=== PATIENT | male | born 1980 | race Caucasian/White ===

== ENCOUNTER 2016-10-28 04:35 | Emergency (ER) | payer MEDICAID ==
[~2016-10-28] VITALS: Ht 177.8 cm; Wt 63.5 kg
--- NOTE | 2016-10-28 04:37 | NUR ---
PT BIB [facility]. TAKEN TO BED 3
--- NOTE | 2016-10-28 04:41 | NUR ---
36 Y/O M BIBA W/C/O R LOWER BACK PAIN, NAUSEA AND VOMITING X TODAY AT 0400 AM. PT STATES PT HAS HX OF KIDNEY STONE AND WAS RECENTLY DIAGNOSED WITH KIDNEY STONE ON R KIDNEY. PT DENIES ANY FEVER BUT STATES HAS EXPERINECED CHILLS. NO S/S OF DISTRESS NOTED AT THE MOMENT, ER MD WILL BE NOTIFY.
[2016-10-28 04:45] VITALS: BP 138/56
[2016-10-28] MEDS ORDERED: METOCLOPRAMIDE 10 MG/2 ML INJ VIAL IVP ONE (05:30)
[2016-10-28] MEDS ORDERED: NACL 0.9% 1,000 ML IV ONE ×2 (05:30)
[2016-10-28] MEDS ORDERED: fentaNYL 0.05 MG/ML VIAL IVP ONE ×2 (05:30→06:55)
--- NOTE | 2016-10-28 05:39 | NUR ---
Dr. Winters evaluating patient at bedside.
[2016-10-28] MEDS ORDERED: FAMOTIDINE 20 MG/2 ML VIAL IVP ONE (05:45)
[2016-10-28 05:55] LABS: ANION GAP 9.1 (8-16); CALCIUM 8.9 mg/dL (8.5-10.1); CARBON DIOXIDE 31.5 mmol/L (21-32); CREATININE 0.9 mg/dL (0.6-1.3); POTASSIUM 3.6 mmol/L (3.5-5.1)
[2016-10-28 05:57] LABS: BASOPHILS # (AUTO) 0.1 K/uL (0.00-0.22); BASOPHILS % (AUTO) 2.1 % (0.0-2.0); EOSINOPHILS # (AUTO) 0.1 K/uL (0-0.4); EOSINOPHILS % (AUTO) 1.2 % (0.0-4.0); HEMATOCRIT 39.7 % (36-52); HEMOGLOBIN 13.1 g/dL (12.0-18.0); LYMPHOCYTES # (AUTO) 1.5 K/uL (2.0-11.5); LYMPHOCYTES % (AUTO) 26.3 % (20.5-51.1); MEAN CORPUSCULAR HEMOGLOBIN 29 pg (27-31); MEAN CORPUSCULAR HGB CONC 33 g/dL (33-37); MEAN CORPUSCULAR VOLUME 88 fL (80-94); MONOCYTES # (AUTO) 0.3 K/uL (0.8-1.0); MONOCYTES % (AUTO) 5.6 % (1.7-9.3); NEUTROPHILS # (AUTO) 3.9 K/uL (1.8-7.7); NEUTROPHILS % (AUTO) 64.8 % (42.2-75.2); PLATELET COUNT (AUTO) 159 K/uL (140-450); RED CELL DISTRIBUTION WIDTH 12.9 % (11.6-13.7); WHITE BLOOD COUNT (AUTO) 5.9 K/uL (4.8-10.8)
--- NOTE | 2016-10-28 06:00 | NUR ---
PT TAKEN TO CT
[2016-10-28 06:01] LABS: ALBUMIN 3.9 g/dL (3.4-5.0); TOTAL BILIRUBIN 0.4 mg/dL (0.0-1.0); TOTAL PROTEIN, SERUM 6.9 g/dL (6.4-8.2)
[2016-10-28 06:07] LABS: INR 1.2 (0.8-1.2); PARTIAL THROMBOPLASTIN TIME 27.9 secs (22-35.6); PROTHROMBIN TIME 11.2 secs (10.8-13.4)
--- NOTE | 2016-10-28 06:14 | NUR ---
PT RETURN FROM CT
--- NOTE | 2016-10-28 06:29 | NUR ---
PT RESTING IN BED, DENIES ANY PAIN AT THE MOMENT. ON MONITOR, NO S/S OF DISTRESS NOTED AT THE MOMENT.
[2016-10-28] MEDS ORDERED: DIAZEPAM PFS 10 MG/2 ML SYR IVP ONE (06:55)
--- NOTE | 2016-10-28 07:18 | NUR ---
REPORT GIVEN TO MAGGY ENCARNACION. PT CHARISSE, VSS. WILKERSON OF CARE AT THIS TIME.
--- NOTE | 2016-10-28 07:20 | NUR ---
CALLED PHARMACY;ANI MORALES IS NOT SHOWING INTHE PHYXIS;PHARMACIST TOLD ME TO OVERRIDE MEDS.
[2016-10-28] MEDS ORDERED: DIAZEPAM PFS 10 MG/2 ML SYR ONE (07:32)
--- NOTE | 2016-10-28 07:36 | NUR ---
PT AMBULATED TO THE RESTROOM.
--- NOTE | 2016-10-28 07:36 | NUR ---
Mick pacheco in [facility] - 10/28/16 at 0743 by VALENTINO PT AMBULAYED TO THE RESTROOM.
--- NOTE | 2016-10-28 08:00 | NUR ---
Patient discharged with v/s stable. Written and verbal after care instructions given and explained.Patient alert, oriented and verbalized understanding of instructions. Carried with steady gait. All questions addressed prior to discharge. ID band removed. Patient advised to follow up with PMD. Rx of BENTYL given. Patient educated on indication of medication including possible reaction and side effects. Opportunity to ask questions provided and answered.
[2016-10-28 08:02] VITALS: BP 131/88
== END 2016-10-28 08:00 | disposition home or self-care (01) ==
LOC: MED 04:35
DX: K56.7 Ileus, unspecified (principal); R03.0 Elevated blood-pressure reading, without diagnosis of hypertension; K21.9 Gastro-esophageal reflux disease without esophagitis; Z88.1 Allergy status to other antibiotic agents; Z88.6 Allergy status to analgesic agent; Z88.8 Allergy status to other drugs, medicaments and biological substances; Z87.442 Personal history of urinary calculi
CPT/HCPCS: 36415; 72125; 74176; 80053; 83690; 85025; 85610; 85730; 96361; 96374; 96375; 96376; 99285; J2765; J3010; J3360; J3490; J7030

== ENCOUNTER 2017-04-03 08:19 | Emergency (ER) | payer MEDICAID ==
[~2017-04-03] VITALS: Ht 177.8 cm; Wt 61.2 kg
[2017-04-03 08:27] VITALS: BP 118/74
--- NOTE | 2017-04-03 08:58 | NUR ---
Patient to bed 11 by EMS at this time.
--- NOTE | 2017-04-03 09:00 | NUR ---
36/M BIBA C/O ABD PAIN & N/V X TODAY. PER PATIENT,S/P COLONOSCOPY, BLOODY STOOL,BODY ACHE.HX: KIDNEY STONE, PELVIC & NECK SUG. SKIN IS PINK/WARM/DRY; AAOX4; LUNGS CLEAR BL; PT DENIES ANY FEVER, CP, SOB, OR COUGH AT THIS TIME; PATIENT STATES PAIN OF 10/10 AT THIS TIME; PATIENT POSITIONED FOR COMFORT; HOB ELEVATED; BEDRAILS UP X2; BED DOWN. ER MD MADE AWARE OF PT STATUS.
[2017-04-03] MEDS ORDERED: NACL 0.9% 1,000 ML IV ONE (09:15)
[2017-04-03] MEDS ORDERED: FAMOTIDINE 20 MG/2 ML VIAL IVP ONE (09:15)
[2017-04-03] MEDS ORDERED: LORazepam 2 MG/ML VIAL IVP ONE (09:15)
[2017-04-03] MEDS ORDERED: MORPHINE SULFATE 4 MG/ML SYR IVP ONE (09:15)
[2017-04-03] MEDS ORDERED: METOCLOPRAMIDE 10 MG/2 ML INJ VIAL IVP ONE ×2 (09:15→12:30)
--- NOTE | 2017-04-03 09:40 | NUR ---
0940; 1MG ATIVAN WASTED
[2017-04-03 09:56] LABS: BASOPHILS # (AUTO) 0.1 K/uL (0.00-0.22); BASOPHILS % (AUTO) 1.8 % (0.0-2.0); EOSINOPHILS % (AUTO) 0.2 % (0.0-4.0); HEMATOCRIT 40.3 % (36-52); LYMPHOCYTES # (AUTO) 0.5 K/uL (2.0-11.5); MEAN CORPUSCULAR HEMOGLOBIN 29 pg (27-31); MEAN CORPUSCULAR HGB CONC 32 g/dL (33-37); MEAN CORPUSCULAR VOLUME 89 fL (80-94); MONOCYTES # (AUTO) 0.3 K/uL (0.8-1.0); MONOCYTES % (AUTO) 3.6 % (1.7-9.3); NEUTROPHILS # (AUTO) 7.3 K/uL (1.8-7.7); NEUTROPHILS % (AUTO) 88.4 % (42.2-75.2); PLATELET COUNT (AUTO) 178 K/uL (140-450); RED BLOOD CELL COUNT(AUTO) 4.56 MIL/uL (4.20-6.10); WHITE BLOOD COUNT (AUTO) 8.2 K/uL (4.8-10.8)
--- NOTE | 2017-04-03 10:00 | NUR ---
PT TAKEN TO CT VIA GUJENNIE, ACCOMPANIED BY TELEGRAPH SERVICE CLERK.
--- NOTE | 2017-04-03 10:10 | NUR ---
PT BACK FROM CT VIA NINFA, ACCOMPANIED BY COMMUTATOR ASSEMBLER.
[2017-04-03 11:22] LABS: ANION GAP 11.2 (8-16); POTASSIUM 3.2 mmol/L (3.5-5.1)
[2017-04-03 11:23] LABS: ALBUMIN 4.6 g/dL (3.4-5.0); TOTAL BILIRUBIN 0.4 mg/dL (0.0-1.0)
--- NOTE | 2017-04-03 12:07 | NUR ---
Patient appears to be resting comfortably in bed. BP 133/94,P 73, PULSE OX 100% Respirations even and unlabored.WILL CONTINUE TO MONITOR.
[2017-04-03] MEDS ORDERED: GLYCOPYRROLATE 0.2 MG/ML VIAL IV ONE (12:30)
[2017-04-03] MEDS ORDERED: POTASSIUM CHL 10 MEQ/D5-1/2NS 1,000 ML IV ONE (12:30)
[2017-04-03] MEDS ORDERED: MORPHINE SULFATE 2 MG/ML SYR IVP ONE (12:30)
[2017-04-03 13:05] LABS: APPEARANCE,URINE HAZY (CLEAR); BILIRUBIN,URINE NEGATIVE (NEGATIVE); BLOOD, URINE NEGATIVE (NEGATIVE); COLOR,URINE YELLOW (YELLOW); LEUKOCYTE ESTERASE ,URINE NEGATIVE (NEGATIVE); NITRITE, URINE NEGATIVE (NEGATIVE); PH,URINE 8.5 (5.0-9.0); UGLUCOSE NEGATIVE (NEGATIVE)
--- NOTE | 2017-04-03 13:15 | NUR ---
Patient appears to be resting comfortably in bed. Vital Signs within normal limits. Respirations even and unlabored.WILL CONTINUE TO MONITOR.
[2017-04-03 13:33] VITALS: BP 108/76
--- NOTE | 2017-04-03 13:33 | NUR ---
Patient discharged with v/s stable. Written and verbal after care instructions given and explained. Patient verbalized understanding. Ambulatory with steady gait. All questions addressed prior to discharge. Advised to follow up with PMD.
== END 2017-04-03 13:33 | disposition home or self-care (01) ==
LOC: MED 08:19
DX: G43.A0 Cyclical vomiting, in migraine, not intractable (principal); E86.0 Dehydration; F48.8 Other specified nonpsychotic mental disorders; K21.9 Gastro-esophageal reflux disease without esophagitis; Z88.8 Allergy status to other drugs, medicaments and biological substances; Z88.1 Allergy status to other antibiotic agents
CPT/HCPCS: 36415; 74176; 80053; 81003; 82150; 83690; 85025; 96361; 96365; 96375; 96376; 99285; J2060; J2270; J2765; J3490; J7030

== ENCOUNTER 2017-09-14 07:21 | Emergency (ER) | payer MEDICAID ==
[~2017-09-14] VITALS: Ht 177.8 cm; Wt 59.0 kg
[2017-09-14 07:25] VITALS: BP 135/93
[2017-09-14] MEDS ORDERED: GLYCOPYRROLATE 0.2 MG/ML VIAL IV ONE (07:45)
[2017-09-14] MEDS ORDERED: FAMOTIDINE 20 MG/2 ML VIAL IVP ONE (07:45)
[2017-09-14] MEDS ORDERED: LORazepam 2 MG/ML VIAL IVP ONE (07:45)
[2017-09-14] MEDS ORDERED: NACL 0.9% 1,000 ML IV SCH (07:45)
[2017-09-14] MEDS ORDERED: MORPHINE SULFATE 4 MG/ML SYR IVP ONE (07:45)
[2017-09-14] MEDS ORDERED: NACL 0.9% 1,000 ML IV ONE (07:45)
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
[2017-09-14] MEDS ORDERED: MORPHINE SULFATE 5 MG/ML VIAL ONE (08:02)
--- NOTE | 2017-09-14 08:13 | NUR ---
PT AWARE NEED URINE, PER PT WILL GIVE LATER
[2017-09-14 08:15] LABS: BASOPHILS % (AUTO) 0.3 % (0.0-2.0); EOSINOPHILS % (AUTO) 0.3 % (0.0-4.0); HEMOGLOBIN 12.6 g/dL (12.0-18.0); LYMPHOCYTES % (AUTO) 10.5 % (20.5-51.1); MEAN CORPUSCULAR HEMOGLOBIN 29 pg (27-31); MEAN CORPUSCULAR HGB CONC 33 g/dL (33-37); MEAN CORPUSCULAR VOLUME 88.1 fL (80-94); MONOCYTES # (AUTO) 0.4 K/uL (0.8-1.0); MONOCYTES % (AUTO) 4.2 % (1.7-9.3); NEUTROPHILS % (AUTO) 84.7 % (42.2-75.2); PLATELET COUNT (AUTO) 158 K/uL (140-450); RED BLOOD CELL COUNT(AUTO) 4.32 MIL/uL (4.20-6.10); RED CELL DISTRIBUTION WIDTH 13.7 % (11.6-13.7); WHITE BLOOD COUNT (AUTO) 9.5 K/uL (4.8-10.8)
--- NOTE | 2017-09-14 08:18 | NUR ---
TALKED TO MD PT ASKING FOR REGLAN PER MD I ALREADY ORDER HIS MEDICATION, EXPLAINED TO PT, PT EYES CLOSE AT THIS TIME, NO VOMITTING NOTED, IVF ONGOING WELL TOLERATED.
--- NOTE | 2017-09-14 08:27 | NUR ---
PT TO CT SCAN ACCOMPANIED BY 2 FORM PRESSER.
--- NOTE | 2017-09-14 08:35 | NUR ---
PT BACK FROM CT
--- NOTE | 2017-09-14 08:36 | NUR ---
PT RETURNED TO BED [address]
--- NOTE | 2017-09-14 08:39 | NUR ---
PER PT HE HAS REGLAN AND WANTS IF HE CAN TAKE IT, INFORM PT WILL TO THE MD.
[2017-09-14] MEDS ORDERED: HALOPERIDOL IM 5 MG/ML VIAL IM ONE (08:40)
[2017-09-14 08:41] LABS: ANION GAP 13.1 (8-16); CARBON DIOXIDE 26.2 mmol/L (21-32); CREATININE 0.9 mg/dL (0.7-1.3); POTASSIUM 3.3 mmol/L (3.5-5.1); TOTAL BILIRUBIN 0.3 mg/dL (0.0-1.0)
--- NOTE | 2017-09-14 08:43 | NUR ---
PER PT HE CANNT TAKE HALDOL AND DOESNT WANT KT WILL INFORM
--- NOTE | 2017-09-14 08:47 | NUR ---
PT TRYING TO GET URINE, NO URINE AT THIS TIME.
--- NOTE | 2017-09-14 08:47 | NUR ---
TALKED TO MD WITH CHARGE NURSE REGARDING REGLAN.
--- NOTE | 2017-09-14 08:56 | NUR ---
PT SLEEPING NO VOMITTING NOTED AT THIS TIME
[2017-09-14] MEDS ORDERED: METOCLOPRAMIDE 10 MG/2 ML INJ VIAL IVP ONE (09:00)
--- NOTE | 2017-09-14 09:15 | NUR ---
TALKED AGAIN TO PT REGARDING URINE COLLECTION PER PT HE IS STILL NOT READY TO GIVE URINE,
--- NOTE | 2017-09-14 10:11 | NUR ---
PT SIGNED D/C ORDER, AWARE NEED TO FOLLOW UP WITH PRIMARY MD, NO VOMITTING NOTED,VITAL SIGN STABLE, AWARE NEED TO CONTINUE CURRENT MEDICATION
[2017-09-14 10:21] VITALS: BP 105/64
--- NOTE | 2017-09-14 10:22 | NUR ---
Patient discharged with v/s stable. Written and verbal after care instructions given and explained. Patient verbalized understanding. Wheel Chair Assisted with steady gait. All questions addressed prior to discharge. Advised to follow up with PMD.
[2017-09-14 11:51] LABS: BILIRUBIN,URINE NEGATIVE (NEGATIVE); BLOOD, URINE NEGATIVE (NEGATIVE); COLOR,URINE YELLOW (YELLOW); LEUKOCYTE ESTERASE ,URINE NEGATIVE (NEGATIVE); NITRITE, URINE NEGATIVE (NEGATIVE); PH,URINE 8.5 (5.0-9.0); UGLUCOSE NEGATIVE (NEGATIVE)
[2017-09-14 12:04] LABS: APPEARANCE,URINE CLEAR (CLEAR)
== END 2017-09-14 10:11 | disposition home or self-care (01) ==
LOC: MED 07:21
DX: G89.18 Other acute postprocedural pain (principal); R46.89 Other symptoms and signs involving appearance and behavior; N20.0 Calculus of kidney; K21.9 Gastro-esophageal reflux disease without esophagitis; Z88.8 Allergy status to other drugs, medicaments and biological substances
CPT/HCPCS: 36415; 74176; 80053; 81003; 82150; 83690; 85025; 96361; 96374; 96375; 99285; J2060; J2270; J2765; J3490; J7030

== ENCOUNTER 2024-02-16 20:31 | Emergency (ER) | payer MEDICAID ==
[~2024-02-16] VITALS: Ht 177.8 cm; Wt 56.7 kg
[2024-02-16 20:55] VITALS: BP 142/86; PULSE 96; RESP 18; TEMP 97.6; O2SAT 96
[2024-02-16 21:21] LABS: BASOPHILS % (AUTO) 0.1 % (0.0-2.0); HEMATOCRIT 37.9 % (36-52); HEMOGLOBIN 12.7 g/dL (12.0-18.0); LYMPHOCYTES # (AUTO) 0.5 K/uL (2.0-11.5); LYMPHOCYTES % (AUTO) 7.2 % (20.5-51.1); MEAN CORPUSCULAR HEMOGLOBIN 30 pg (27-31); MEAN CORPUSCULAR HGB CONC 34 g/dL (33-37); MEAN CORPUSCULAR VOLUME 90.7 fL (80-94); MONOCYTES # (AUTO) 0.2 K/uL (0.8-1.0); MONOCYTES % (AUTO) 2.5 % (1.7-9.3); NEUTROPHILS # (AUTO) 6.7 K/uL (1.8-7.7); NEUTROPHILS % (AUTO) 90.2 % (42.2-75.2); PLATELET COUNT (AUTO) 150 K/uL (140-450); RED BLOOD CELL COUNT(AUTO) 4.18 MIL/uL (4.20-6.10); RED CELL DISTRIBUTION WIDTH 13.3 % (11.6-13.7); WHITE BLOOD COUNT (AUTO) 7.4 K/uL (4.8-10.8)
[2024-02-16] MEDS: MORPHINE SULFATE 4 MG/ML SYR IVP ONE (21:46)
[2024-02-16 21:51] LABS: ALBUMIN 4.1 g/dL (3.4-5.0); BILIRUBIN,DIRECT 0.1 mg/dL (0.0-0.3); TOTAL BILIRUBIN 0.6 mg/dL (0.0-1.0); TOTAL PROTEIN, SERUM 7.1 g/dL (6.4-8.2)
[2024-02-16 21:54] LABS: ANION GAP 17.1 (8-16); CALCIUM 9.2 mg/dL (8.5-10.1); CARBON DIOXIDE 23.6 mmol/L (21-32); CREATININE 0.9 mg/dL (0.6-1.3); POTASSIUM 3.7 mmol/L (3.5-5.1)
[2024-02-16] MEDS: METOCLOPRAMIDE 10 MG/2 ML INJ VIAL IVP ONE (21:54)
[2024-02-16 23:46] LABS: APPEARANCE,URINE CLEAR (CLEAR); BILIRUBIN,URINE NEGATIVE (NEGATIVE); BLOOD, URINE NEGATIVE (NEGATIVE); COLOR,URINE YELLOW (YELLOW); LEUKOCYTE ESTERASE ,URINE NEGATIVE (NEGATIVE); NITRITE, URINE NEGATIVE (NEGATIVE); PROTEIN,URINE TRACE (NEGATIVE); UGLUCOSE NEGATIVE (NEGATIVE); UROBILINOGEN,URINE 0.2 EU/dL (0.2 - 1)
[2024-02-16 23:50] LABS: BACTERIA,URINE 1+ /HPF (None Seen); RBC,URINE 0 /HPF (0-5); SQUAMOUS EPITHELIAL CELL,UR 0-3 (FEW) /LPF (0-3 (FEW)); WBC,URINE 0-5 /HPF (0-5)
[2024-02-16 23:51] LABS: MUCUS,URINE None Seen /LPF (None Seen)
[2024-02-17] MEDS: NACL 0.9% 1,000 ML IV ONE (00:04)
[2024-02-17 02:30] VITALS: BP 120/78; PULSE 78; RESP 16; TEMP 98; O2SAT 98
== END 2024-02-17 02:30 | disposition home or self-care (01) ==
LOC: MED 20:31
DX: A08.4 Viral intestinal infection, unspecified (principal); E86.0 Dehydration; K21.9 Gastro-esophageal reflux disease without esophagitis; Z98.890 Other specified postprocedural states; Z88.1 Allergy status to other antibiotic agents; Z88.8 Allergy status to other drugs, medicaments and biological substances; Z88.5 Allergy status to narcotic agent; Z88.6 Allergy status to analgesic agent
CPT/HCPCS: 36415; 76705; 80048; 80076; 81001; 82150; 83690; 85025; 87086; 96361; 96374; 96375; 99285; J2270; J2765; Q0092